=== PATIENT | male | born 1945 | race Caucasian/White ===

== ENCOUNTER → 2017-03-11 | Outpatient (CLI) | payer OTHER ==
[~2017-03-11] MED LIST: CLARITIN,ALAVAR10 MG PO; COMBIGAN O20 DROP/5 RIGHT EYE; CYANOCOBAL1000 MCG/2 IM; FLONASE ALLERG9.9 ML BOTH NARES; ISOPTO CARPINE15 ML RIGHT EYE; LUMIGAN 0.50 DROP/22 RIGHT EYE; PRINIVIL5 MG PO; SYNTHROID125 MCG PO
== END | disposition home or self-care (01) ==
LOC: AMB 06:55
PROC: 07B20ZX Excision of Left Neck Lymphatic, Open Approach, Diagnostic (ICD-10-PCS; principal; 2017-03-11)
DX: R59.0 Localized enlarged lymph nodes (principal); Z85.72 Personal history of non-Hodgkin lymphomas; Z92.21 Personal history of antineoplastic chemotherapy; J31.0 Chronic rhinitis; I10 Essential (primary) hypertension; Z86.73 Personal history of transient ischemic attack (TIA), and cerebral infarction without residual deficits; E03.9 Hypothyroidism, unspecified; Z79.82 Long term (current) use of aspirin
CPT/HCPCS: 88184 90; 88185 90; 88189 90; 88305